=== PATIENT | female | born 1935 | race Caucasian/White ===

== ENCOUNTER → 2016-10-21 13:05 | Outpatient (CLI) | payer MEDICARE ==
[2016-06-07 07:31] VITALS: BMI 18.6
[~2016-10-21 13:05] MED LIST: GLUCOPHAGE500 MG PO; PAXIL40 MG PO; TUMS500 MG PO
== END | disposition home or self-care (01) ==
LOC: D.US 13:05
DX: I65.23 Occlusion and stenosis of bilateral carotid arteries (principal)

== ENCOUNTER → 2016-11-15 18:15 | Outpatient (CLI) | payer MEDICARE ==
[2016-06-07 07:31] VITALS: BMI 18.6
== END | disposition home or self-care (01) ==
LOC: D.MAMMO 13:30
DX: Z12.31 Encounter for screening mammogram for malignant neoplasm of breast (principal)

== ENCOUNTER 2017-02-01 10:44 | Inpatient (IN) | payer MEDICARE ==
[~2017-02-01] VITALS: Ht 167.6 cm; Wt 49.5 kg
[2017-02-01 11:02] VITALS: BP 149/76; Ht 167.6 cm; Wt 49.5 kg
--- NOTE | 2017-02-01 11:25 | NUR ---
PT ARRIVED TO ROOM FROM DOCTORS OFFICE. PT IS ALERT AND ORIENTED AND STATES SHE IS HERE FOR "RANDOM SHAKING" HOWEVER PAPERWORK STATES AMS. PTS MEMORY WAS SLIGHTLY IMPAIRED WHILE DOING HER H&P HOWEVER NO NEURO DEFICITS NOTED. ORIENTED PT TO SITUATION/FLOOR/ROOM AND PT VERBALIZED UNDERSTANDING. PT HAS AT BEDSIDE. MRI HERE TO TAKE PT DOWN, NO PIV IS IN PLACE AT THIS TIME HOWEVER THEY STATE THEY WILL START ONE. EKG NEEDED AND WILL BE COMPLETED WHEN PT GETS BACK AND TELEMETRY WILL BE APPLIED. NEEDING URINE SAMPLE AND PT VERBALIZED UNDERSTANDING. NO FURTHER NEEDS NOTED AT THIS TIME. WILL CPOC.
[2017-02-01 12:00] VITALS: BP 149/78
[2017-02-01 12:19] LABS: ALBUMIN 3.5 g/dL (3.4-5.0); BILIRUBIN - TOTAL 0.44 mg/dL (0.2-1.3); CALCIUM 8.8 mg/dL (8.5-10.1); CARBON DIOXIDE 27.1 mmol/L (21.0-32.0); CREATININE - SERUM 1.1 mg/dL (0.6-1.3); POTASSIUM - SERUM 4.1 mmol/L (3.5-5.1); PROTEIN - SERUM 7.6 g/dL (6.4-8.2)
[2017-02-01 12:29] LABS: T4 THYROXINE 8.2 ug/dL (4.7-13.3); THYROID STIMULATING HORMONE 0.99 uIU/mL (0.36-3.74)
--- NOTE | 2017-02-01 12:37 | NUR ---
PT BACK FROM MRI AND WAS GIVEN HER ASA CHEWABLE ORDERED. PT NOW HAS A L.FA PIV WITH DRSG CDI AND SWAB CAPS IN USE. PT SITTING UP IN BED READY TO EAT LUNCH. DENIES ANY CURRENT PAIN OR NEEDS. WILL CTM.
--- NOTE | 2017-02-01 13:00 | NUR ---
EKG COMPLETED ORDERED AND PLACED IN CHART. PT RUNNING SR.
[2017-02-01 16:00] VITALS: BP 174/76
[2017-02-01 16:37] LABS: APPEARANCE CLEAR (CLEAR); BILIRUBIN NEGATIVE (NEGATIVE); COLOR YELLOW (YELLOW); GLUCOSE NEGATIVE (NEGATIVE); KETONE NEGATIVE (NEGATIVE); LEUKOCYTE ESTERASE NEGATIVE (NEGATIVE); NITRITE NEGATIVE (NEGATIVE); PROTEIN NEGATIVE (NEGATIVE); SPECIFIC GRAVITY 1.015 (1.005-1.020); UROBILINOGEN NORMAL (NORMAL)
[2017-02-01 19:00] VITALS: BP 168/82
--- NOTE | 2017-02-01 19:26 | NUR ---
PT SITTING UP IN BED RESTING QUIETLY WITH AT BEDSIDE. RR NONLABORED ON RA. PT DENIES ANY CURRENT PAIN OR NEEDS AND IS JUST WAITING RESULTS TO MAYBE FIGURE OUT WHATS GOING ON WITH HER. WILL REPORT TO NIGHTSHIFT NURSE.
--- NOTE | 2017-02-01 19:30 | NUR ---
ASSESSMENT COMPLETE. S1S2. RR EQUAL NON LABORED; CLEAR. ROOM AIR. RADIAL AND PEDAL PULSES PALPATED. UP ADLIB. PT DENIES PAIN. PERRLA. FOLLOWS COMMANDS. QUALITY ASSURANCE/R&D LAB TECHNICIAN STRENGTH EQUAL BILATERAL +4. GAIT STEADY. WILL CONTINUE TO MONTIOR. DENIES ANY FURTHER NEEDS AT THIS TIME.
--- NOTE | 2017-02-01 20:11 | NUR ---
SUPPLIED PT WITH BATHING SUPPLIED, ORAL CARE SUPPLIES, AND A GOWN. INDEPENDENT WITH ADL'S AND GROOMING. AT BEDSIDE. UPDATE GIVEN.
--- NOTE | 2017-02-01 23:10 | NUR ---
PT RESTINGS; EYES CLOSED. NO DISTRESS NOTED. CALL LIGHT IN REACH. WILL CONTINUE TO MONITOR.
[2017-02-02] VITALS: BP 176/90
--- NOTE | 2017-02-02 02:34 | NUR ---
PT RESTING; EYES CLOSED. NO DISTRESS NOTED. CALL LIGHT IN REACH. WILL CONTINUE TO MONITOR.
[2017-02-02 04:34] VITALS: BP 147/83
[2017-02-02 05:16] LABS: BASOPHILS 0.2 % (0-2); EOSINOPHILS 9.4 % (0-7); HEMATOCRIT 32.5 % (36.0-48.0); HEMOGLOBIN 10.5 g/dL (12-16); IMMATURE GRANULOCYTES 0.2 % (0-5); LYMPHOCYTES 25.1 % (15-50); MCH 31.8 pg (26.0-34.0); MCHC 32.3 g/dL (31.0-37.0); MCV 98.5 fL (80.0-100.0); MEAN PLATELET VOLUME 10.9 fL (7.4-10.4); MONOCYTES 12.6 % (2-11); NEUTROPHILS 52.5 % (40-80); PLATELET COUNT 187 10x3/uL (130-400); RDW 13.6 % (11.5-14.5); WBC 4.9 10x3/uL (4.8-10.8)
[2017-02-02 05:34] LABS: ANION GAP 11.5 mmol/L (8-16); CALCIUM 8.3 mg/dL (8.5-10.1); CARBON DIOXIDE 27.7 mmol/L (21.0-32.0); POTASSIUM - SERUM 4.2 mmol/L (3.5-5.1)
--- NOTE | 2017-02-02 06:16 | NUR ---
PT AWAKE AND ALERT. DENIES ANY FURTHER NEEDS AT THIS TIME. NO SIGNS OF DISTRESS. WILL CONTINUE TO MONITOR.
[2017-02-02 07:22] LABS: FOLATE (FOLIC ACID) - SERUM >20.0 ng/mL (>3.0)
--- NOTE | 2017-02-02 07:53 | NUR ---
0715- AM ROUNDING- RECEIVED REPORT FROM RAMP MANAGER NURSE CRISTAL. PT IS CURRENTLY SITTING UP IN BED WITH EYES OPEN RESTING. ON ROOM AIR. NO MONITOR. IV SEEN TO LEFT FOREARM THAT IS CURRENTLY SALINE LOCKED. PT IS ALERT AND ORIENTED. PT DENIES ANY NEED AT CURRENT TIME. INFORMED PT TO USE CALL LIGHT IF NEEDING ASSISTANCE FROM STAFF MEMBERS. BED IS IN LOW POSITION AND SIDE RAILS ARE UP X2. WILL CONTINUE TO MONITOR AND CONTINUE WITH PLAN OF CARE.
[2017-02-02] MEDS ORDERED: PAXIL20 MG PO (08:03)
[2017-02-02] MEDS ORDERED: ECOTRIN325 MG PO (08:04)
[2017-02-02 08:19] VITALS: BP 143/80
--- NOTE | 2017-02-02 08:35 | NUR ---
Patient Name: CAROLYNN YOUNG Admission Status: Urgent Accout number: [id number] Admission Date: 02-01-2017 : 1935 Admission Diagnosis: Attending: KRYSTEN Current LOS: 1 Anticipated DC Date: 02-02-2017 Planned Disposition: Home Primary Insurance: MEDICARE A & B Discharge Planning Comments: CM MET WITH PATIENT IN REGARDS TO DISCHARGE PLANNING/NEEDS. SHE STATED SHE PLANS TO RETURN HOME WITH SPOUSE, BAILEE, AND THAT HE IS GOING TO BE HER TRANSPORTATION HOME. SHE DENIES ANY MEDICAL EQUIPMENT AT HOME OR THE NEED FOR ANY. SHE DENIES HAVING HOME HEALTH, AND ALSO THE NEED FOR THESE SERVICES. PATIENT TO DISCHARGE TODAY. WILL CONTINUE TO BE AVAILABLE IF SHE WERE TO THINK OF ANY NEEDS. Application Helper: Dayana Jose Luis Is the patient Alert and Oriented? Yes * How many steps to enter\exit or inside your home? 10, RAIL * PCP DR HER * Pharmacy [facility] ON [address] * Preadmission Environment Home with Family * ADLs Independent * Equipment None * List name and contact numbers for known caregivers / representatives who currently or will assist patient after discharge: BAILEE YOUNG, SPOUSE, * Community resources currently utilized None * Additional services required to return to the preadmission environment? No * Can the patient safely return to the preadmission environment? Yes * Has this patient been hospitalized within the prior 30 days at any hospital? No
--- NOTE | 2017-02-02 11:31 | NUR ---
D/C INSTRUCTIONS EXPALINED TO PT. D/C PAPERWORK SIGNED BY PT AND PLACED IN CHART. IV TO LEFT FOREARM REMOVED WITH CATH TIP INTACT. COVERED SITE WITH 2X2 GUAZE PADS AND SECURED WITH TAPE. AWAITING TO GET HERE TO TAKE PT HOME. WILL CALL FOR WHEELCHAIR ONCE GETS HERE.
--- NOTE | 2017-02-02 11:51 | NUR ---
PT D/C VIA WHEELCHAIR.
== END 2017-02-02 11:52 | disposition home or self-care (01) | DRG 66 ==
LOC: D.M2 10:44
PROVIDERS: ADMIT Family Medicine
DX: I63.9 Cerebral infarction, unspecified (principal); F39 Unspecified mood [affective] disorder; E11.9 Type 2 diabetes mellitus without complications; I10 Essential (primary) hypertension

== ENCOUNTER 2017-05-08 09:14 | Day surgery (SDC) | payer MEDICARE ==
[2017-05-05 17:14] LABS: BASOPHILS 0.2 % (0-2); EOSINOPHILS 1.2 % (0-7); HEMATOCRIT 34.2 % (36.0-48.0); HEMOGLOBIN 10.9 g/dL (12-16); LYMPHOCYTES 24.2 % (15-50); MCH 32.2 pg (26.0-34.0); MCHC 31.9 g/dL (31.0-37.0); MCV 101.2 fL (80.0-100.0); MEAN PLATELET VOLUME 11.1 fL (7.4-10.4); MONOCYTES 9.5 % (2-11); NEUTROPHILS 64.9 % (40-80); PLATELET COUNT 199 10x3/uL (130-400); RBC 3.38 10x6/uL (4.00-5.40); RDW 13.2 % (11.5-14.5); WBC 5.2 10x3/uL (4.8-10.8)
[2017-05-05 17:25] LABS: ANION GAP 13.5 mmol/L (8-16); CALCIUM 8.9 mg/dL (8.5-10.1); CARBON DIOXIDE 27.5 mmol/L (21.0-32.0)
[~2017-05-08 09:14] MED LIST changes: +ECOTRIN325 MG PO; +LIPITOR10 MG PO; +PAXIL20 MG PO; +PLAVIX75 MG PO
[2017-05-08 11:58] VITALS: BP 178/111; BMI 18.6
--- NOTE | 2017-05-08 15:15 | NUR ---
CONSULTED ANETHESIA REGARDING ELEVATED BLOOD PRESSURE. VERBAL ORDER GIVEN BY ASH ARMANDO CRNA TO GIVE LABETOLOL 5MG IV X1 NOW. IF SBP REMAINS OVER 190 GIVE HYDRALAZINE 5MG IV X1 IN PACU.
--- NOTE | 2017-05-08 15:42 | NUR ---
CONSULTED ANESTHESIA REGARDING PERSISTENT ELEVATED BLOOD PRESSURE. GIVEN VERBAL ORDERS TO GIVE HYDRALAZINE 5MG EVERY FIVE MINUTES UP TO A TOTAL OF 20MG IV IN PACU.
--- NOTE | 2017-05-08 17:32 | NUR ---
1725 DISCHARGE INSTRUCTIONS COMPLETE. PRESCRIPTIONS FOR SITZ BATH AND TYLENOL 3 GIVEN. PT HAS NO QUESTIONS OR CONCNERNS AT THIS TIME. ESCORTED OUT BY MICHELLE FRANKEL.
--- NOTE | 2017-05-16 12:52 | OP ---
PATIENT NAME: CAROLYNN YOUNG MEDICAL RECORD: [id number] :34 LOCATION:D.OPS ADMISSION DATE: SURGEON: JUSTYN CANALES MD DATE OF OPERATION: 05/08/2017 PREOPERATIVE DIAGNOSIS: Vulvar intraepithelial neoplasia 3. POSTOPERATIVE DIAGNOSIS: Vulvar intraepithelial neoplasia 3. PROCEDURE: Wide local excision. SURGEON: Justyn Canales MD ANESTHESIOLOGIST: Zelalem Sotelo MD ANESTHESIA: General with endotracheal intubation. FINDINGS: Vulvar lesion on the right labia. This is discolored and vertical in appearance. The site of biopsy at the medial edge identified. SPECIMEN REMOVED: Vulvar excision. SPECIMEN DISPOSITION: To pathology. ESTIMATED BLOOD LOSS: Less than or equal to 50 mL. FLUIDS: 600 cc lactated Ringer's. URINE OUTPUT: Quantity sufficient void prior to the procedure. COMPLICATIONS: None. DRAINS: None. 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 The patient presents for removal of lesion. DESCRIPTION OF PROCEDURE: After informed consent was assured, the patient was taken to the operating room, where anesthetic was obtained and she was placed in stirrups. She is now prepped and draped in the usual sterile fashion. The extent of the lesion is visualized. The base was injected with Marcaine. Using a 15 blade, wide local excision is now performed. This elliptical incision was made and exposed bleeding vessels were stitched. The skin was reapproximated with a subcuticular stitch absorbable stitch. Sterile dressing is applied. The patient is taken down from the stirrups, awakened, and went to the recovery room in stable condition. Sponge, lap, and needle count is correct times 2. TRANSINT:[id number] Voice Confirmation ID: [id number] DOCUMENT ID: [id number] OPERATIVE REPORT [id number] HECTORCAROLYNN JUSTYN SANDOVAL MD at 1252 CC: [id number] DICTATION DATE: 05/16/1703 TELEVISION PRODUCTION CLERK: 05/16/17 0942 [facility] 05/08/17 [place] [address]
== END 2017-05-08 17:25 | disposition home or self-care (01) ==
LOC: D.OPS 09:14 → D.PAN 11:15 → D.OPS 11:15 → D.PAN 12:30 → D.OPS 17:25
PROVIDERS: Anesthesiology
DX: D07.1 Carcinoma in situ of vulva (principal); I10 Essential (primary) hypertension; E11.9 Type 2 diabetes mellitus without complications; Z01.812 Encounter for preprocedural laboratory examination